=== PATIENT | female | born 1985 | race Caucasian/White ===

== ENCOUNTER 2017-07-16 19:24 | Inpatient (IN) | payer OTHER ==
--- NOTE | 2017-07-16 19:31 | PDOC ---
Rapid Medical Evaluation Time Seen by Provider: 07/16/17 19:27 Medical Evaluation: Allergies Allergy/AdvReac Type Severity Reaction Status Date / Time No Known Allergies Allergy Verified 05/30/14 21:52 I have performed a brief in-person evaluation of this patient. The patient presents with a chief complaint of: epigastric pain x 3 days, sharp , radiating to back. Patient tried tums with little relief. She is crying in triage Pertinent physical exam findings: TTP of epigastric region. Negative castorena's sign. I have ordered the following: labs, UA/hcg The patient will proceed to the ED for further evaluation.
[2017-07-16 19:59] LABS: BASO % 0.5 % (0-2.0); EOS % 2.1 % (0-4.5); HEMOGLOBIN 10.8 GM/dL (10.7-15.3); LYMPH % 24.8 % (8-40); MCH 24.5 pg (25.7-33.7); MCHC 32.7 g/dl (32.0-36.0); MEAN CELL VOLUME 74.9 fl (80-96); NEUT % 67.6 % (42.8-82.8); PLATELET COUNT 357 K/MM3 (134-434); RBC 4.41 M/mm3 (3.60-5.2); RDW 15.1 % (11.6-15.6); WHITE BLOOD COUNT 11.1 K/mm3 (4.0-10.0)
--- NOTE | 2017-07-16 20:12 | PDOC ---
History of Present Illness - General Chief Complaint: Chest Pain Stated Complaint: PAIN Time Seen by Provider: 07/16/17 19:27 - History of Present Illness Initial Comments: 07/16/17 20:22 31 yo F with no significant pmh who p/w abdominal pain. Patient reports acute onset of unremitting, sharp, substernal/epigatsirc abdominal pain with radiation to back between shoulder blades beginning Sunday07-14-17. Pain worse with meals. Patient endorses early satiety, and abdominal discomfort with meals. Pain not improved with OTC tums. Last BM this AM, with absent BPR. + Nausea without vomiting. Denies F/C, CP, palpitations, orthopnea, jaw pain, neck pain, jaw pain, SOB, abdominal pain, diarrhea, constipation, urinary complaints, weakness, lightheadedness, sensory changes PMHx: Laparscopic ovarian cyst removal. Denies h/o endoscopy/colonosocpy. SHx: Denies Etoh use, tobacco use, chronic NSAID use. Past History - Past Medical History Allergies/Adverse Reactions: Allergies Allergy/AdvReac Type Severity Reaction Status Date / Time No Known Allergies Allergy Verified 07/16/17 20:10 Home Medications: Ambulatory Orders Acetaminophen [Tylenol .Regular Strength -] 650 mg PO Q6H tablet 07/20/17 Amox-Tr/K Cl [Augmentin - 875Mg Tablet] 1 tab PO BID #8 tablet 07/20/17 Ibuprofen [Motrin -] 600 mg PO Q6H tablet 07/20/17 Anemia: Yes COPD: No - Immunization History Immunization Up to Date: Yes - Suicide/Smoking/Psychosocial Hx Smoking Status: No Smoking History: Never smoked Number of Cigarettes Smoked Daily: 0 Hx Alcohol Use: No Review of Systems - Review of Systems Comments:: 07/16/17 20:10 GENERAL/CONSTITUTIONAL: No fever or chills. No weakness. HEAD, EYES, EARS, NOSE AND THROAT: No change in vision. No ear pain or discharge. No sore throat. CARDIOVASCULAR: No chest pain or shortness of breath RESPIRATORY: No cough, wheezing, or hemoptysis. GASTROINTESTINAL: + abdominal pain and nausea. No vomiting, diarrhea or constipation. GENITOURINARY: No dysuria, frequency, or change in urination. MUSCULOSKELETAL: No joint or muscle swelling or pain. No neck or back pain. SKIN: No rash NEUROLOGIC: No headache, vertigo, loss of consciousness, or change in strength/ sensation. ENDOCRINE: No increased thirst. No abnormal weight change HEMATOLOGIC/LYMPHATIC: No anemia, easy bleeding, or history of blood clots. ALLERGIC/IMMUNOLOGIC: No hives or skin allergy. *Physical Exam - Vital Signs Last Vital Signs Temp Pulse Resp BP Pulse Ox 98.6 F 85 18 141/74 98 07/16/17 19:29 07/16/17 19:29 07/16/17 19:29 07/16/17 19:29 07/16/17 19:29 - Physical Exam Comments: 07/16/17 20:10 GENERAL: Awake, alert, and fully oriented, in no acute distress HEAD: No signs of trauma, normocephalic, atraumatic EYES: PERRLA, EOMI, sclera anicteric, conjunctiva clear ENT: Hearing grossly normal, nares patent, oropharynx clear without exudates. Moist mucosa NECK: Normal ROM, supple, no lymphadenopathy, JVD, or masses LUNGS: No distress, speaks full sentences, clear to auscultation bilaterally HEART: Regular rate and rhythm, normal S1 and S2, no murmurs, rubs or gallops, peripheral pulses normal and equal bilaterally. ABDOMEN: Soft, + RUQ and epigastric ttp. normoactive bowel sounds. No guarding , no rebound. No masses. Neg CVA or suprpaubic ttp. EXTREMITIES : Normal inspection, Normal range of motion, no edema. No clubbing or cyanosis. SKIN: Warm, Dry, normal turgor, no rashes or lesions noted ED Treatment Course - LABORATORY CBC & Chemistry Diagram: 07/19/17 06:00 07/19/17 06:00 - ADDITIONAL ORDERS Additional order review: 07/16/17 19:50 RBC 4.41 MCV 74.9 L MCHC 32.7 RDW 15.1 MPV 8.0 Neutrophils % 67.6 Lymphocytes % 24.8 D Monocytes % 5.0 Eosinophils % 2.1 Basophils % 0.5 Medical Decision Making - Medical Decision Making 07/16/17 20:36 31 yo F with no significant pmh who p/w epigastria and RUQ abdominal pain. VSS, A&Ox3, with RUQ and epigastria ttp. Possible biliary disease vs. dyspepsia 2/2 reflux. Low suspicion of pancreatitis, colitis, AAA. ACS/[place] r/o. ED Course: CBC, CMP, Lipase, Cardiac Pr EKG RUQ U/S Juanpablo RENETTAMelody 07/16/17 22:51 AST/ALT: 306/365 Alk Phosph:320 WBC: 11.1 RUQ U/S: Multiple small gallstones layering posteriorly without sonographic evidence of acute cholecystitis. Borderline dilatation of the common bile duct. Correlate clinically for further evaluation. Spoke to Dr. De La Fuente, patient admitted to surgery for choledocholithiasis. MRCP in AM. 07/16/17 23:17 Blood cultures, 2 gm Cefoxitin, and NS 150ml/hr ordered. *DC/Admit/Observation/Transfer Diagnosis at time of Disposition: Calculus of gallbladder and bile duct without cholecystitis with obstruction - Discharge Dispostion Disposition: HOME Condition at time of disposition: Good Decision to Admit order: Yes - Prescriptions - Referrals - Patient Instructions - Post Discharge Activity - Attestations Physician Attestion: 07/16/17 20:11 Denies F/C, N/V, CP, SOB, abdominal pain, diarrhea, constipation, urinary complaints, weakness, lightheadedness, sensory changes
[2017-07-16 20:23] LABS: ALBUMIN 3.6 g/dl (3.4-5.0); ANION GAP 7 (8-16); BLOOD UREA NITROGEN 10 mg/dL (7-18); CALCIUM 8.7 mg/dL (8.5-10.1); CHLORIDE 103 mmol/L (98-107); CO2 27 mmol/L (21-32); CREATININE 0.7 mg/dL (0.55-1.02); GLUCOSE,RANDOM 96 mg/dL (74-106); POTASSIUM 3.7 mmol/L (3.5-5.1); SGOT/AST 306 U/L (15-37); SGPT/ALT 365 U/L (12-78); SODIUM 137 mmol/L (136-145)
[2017-07-16 20:25] LABS: ALK PHOS 320 U/L (45-117); BILIRUBIN,TOTAL 0.8 mg/dL (0.2-1.0); TOT PROT 7.9 g/dl (6.4-8.2)
[2017-07-16] MEDS ORDERED: ONDANSETRON 4 MG/2 ML VIAL IVPUSH ONE (20:28)
[2017-07-16] MEDS ORDERED: SODIUM CHLORIDE 0.9% 1000 ML INFUS.BAG IV ONE (20:28)
[2017-07-16] MEDS ORDERED: MAG HYDROX/AL HYDROX/SIMETH 30 ML UNIT-DOSE CUP PO ONE (20:29)
[2017-07-16 20:40] LABS: LIPASE 220 U/L (73-393)
[2017-07-16] MEDS ORDERED: MAG HYDROX/AL HYDROX/SIMETH 30 ML UNIT-DOSE CUP ONE (20:43)
[2017-07-16] MEDS ORDERED: ONDANSETRON 4 MG/2 ML VIAL ONE (20:43)
--- NOTE | 2017-07-16 20:56 | PDOC ---
Attending Attestation - [facility] HPI: 07/16/17 20:57 The patient is a 31 year old female, with no significant past medical history, who presents to the emergency department with sharp radiating epigastric pain for the past 3 days. The patient reports that the pain radiates to her back between her shoulder blades. She also notes that the pain is worse with meals, she reports early satiety in addition to nausea. She reports taking OTC Tums without relief of symptoms. Last bowel movement was this morning, which she states was normal. The patient denies any fever, chills, shortness of breath, chest pain, vomiting, diarrhea, constipation, blood per rectum or dysuria. Denies chronic NSAID use. Allergies: None reported. Past Surgical History: Laparoscopic ovarian cyst removal. Social History: Non-smoker. Denies alcohol or drug use. - Physicial Exam PE: 07/16/17 20:57 Vitals: Triage vital signs reviewed. General Appearance: No acute distress, well nourished, well developed. Head: Atraumatic, normocephalic. Eyes: Pupils equal round reactive, extraocular movements intact. Neck: Supple. No nuchal rigidity. Chest Wall: Nontender. Cardiac: Regular rate and rhythm. No murmurs, no rubs, no gallops. Lungs: Clear to auscultation bilaterally, good air movement bilaterally. Abdomen: RUQ tenderness to palpation. Soft, nondistended, normal bowel sounds. Rectal: Exam deferred. Extremities: Full range of motion to all extremities, no cyanosis, clubbing, or edema. Skin: Warm and dry, no rashes or lesions, no petechiae. Psych: Normal mood, normal affect. - Medical Decision Making 07/16/17 20:58 The patient is a 31 year old female, with no significant past medical history, who presents to the emergency department with sharp radiating epigastric pain for the past 3 days. The patient reports that the pain radiates to her back between her shoulder blades. She also notes that the pain is worse with meals, she reports early satiety in addition to nausea. She reports taking OTC Tums without relief of symptoms. Last bowel movement was this morning, which she states was normal. The patient denies any fever, chills, shortness of breath, chest pain, vomiting, diarrhea, constipation, blood per rectum or dysuria. Denies chronic NSAID use. Allergies: None reported. Past Surgical History: Laparoscopic ovarian cyst removal. Social History: Non-smoker. Denies alcohol or drug use. Documentation prepared by Xenia Klein, acting as medical office rep for Kip Mayfield MD. <Xenia Klein - Last Filed: 07/16/17 20:58> - Resident Resident Name: Trey Garnicason - ED Attending Attestation I have performed the following: I have examined & evaluated the patient, The case was reviewed & discussed with the resident, I agree w/resident's findings & plan, Exceptions are as noted - Critical Care Time Total Critical Care Time: 35 Critical Care Statement: The care of this patient involved high complexity decision making to prevent further life threatening deterioration of the patient 's condition and/or to evaluate & treat vital organ system(s) failure or risk of failure. - Medical Decision Making Right upper quadrant pain with evidence of gallstones on ultrasound. Laboratory analysis notable for elevated LFTs Bilirubin normal. Given slightly elevated WBC antibiotics ordered Surgery, Dr De La Fuente has been consulted. We'll admit to surgical service for further management of choledocholithiasis versus cholecystitis. <Kip Mayfield - Last Filed: 07/17/17 03:24>
[2017-07-16 21:14] LABS: URINE APPEARANCE SLCLOUDY; URINE BILIRUBIN NEGATIVE (<2.0 mg/dL); URINE COLOR DKYELLOW; URINE GLUCOSE (UA) NEGATIVE (NEGATIVE); URINE KETONE NEGATIVE (NEGATIVE); URINE LEUK ESTERASE NEGATIVE (NEGATIVE); URINE NITRITE NEGATIVE (NEGATIVE); URINE PROTEIN NEGATIVE (NEGATIVE); URINE UROBILINOGEN 4.0 E.U/dl mg/dL (0.2-1.0)
[2017-07-16 21:15] LABS: HCG,QUALITATIVE URINE NEGATIVE
[2017-07-16] MEDS ORDERED: morphine CARPU-JECT 4 MG/1 ML DISP.SYRIN IVPUSH ONE (22:44)
[2017-07-16] MEDS ORDERED: MORPHINE SULFATE 10 MG/1 ML *VIAL ONE (22:45)
[2017-07-16] MEDS ORDERED: CEFOXITIN SODIUM 2 GM in DEXTROSE 5%-WATER - 100 ML IVPB ONE (23:08)
--- NOTE | 2017-07-16 23:08 | PN ---
Teaching Attending Note Name of Resident: Merced Osman ATTENDING PHYSICIAN STATEMENT I saw and evaluated the patient. I reviewed the resident's note and discussed the case with the resident. I agree with the resident's findings and plan as documented. SUBJECTIVE: 31 F with no pmhx. who presents with abdominal pain,with radiation to her shoulder blades. Stated pain began on Sunday and radiates to her shoulder blades. States her pain is worse with meals, States she has associated nausea, but no vomiting. Pshx: Ovarian Cyst Removal OBJECTIVE: Physical: VS: Vital Signs Period Temp Pulse Resp BP Sys/Avalos Pulse Ox Last 24 Hr 98.6 F 85 18 141/74 98 GEN: HEENT: CARD: RESP: ABD: EXT: CBCD WBC 11.1 K/mm3 (4.0-10.0) H 07/16/17 19:50 RBC 4.41 M/mm3 (3.60-5.2) 07/16/17 19:50 Hgb 10.8 GM/dL (10.7-15.3) 07/16/17 19:50 Hct 33.0 % (32.4-45.2) 07/16/17 19:50 MCV 74.9 fl (80-96) L 07/16/17 19:50 MCHC 32.7 g/dl (32.0-36.0) 07/16/17 19:50 RDW 15.1 % (11.6-15.6) 07/16/17 19:50 Plt Count 357 K/MM3 (134-434) 07/16/17 19:50 MPV 8.0 fl (7.5-11.1) 07/16/17 19:50 CMP Sodium 137 mmol/L (136-145) 07/16/17 19:50 Potassium 3.7 mmol/L (3.5-5.1) 07/16/17 19:50 Chloride 103 mmol/L (98-107) 07/16/17 19:50 Carbon Dioxide 27 mmol/L (21-32) 07/16/17 19:50 Anion Gap 7 (8-16) L 07/16/17 19:50 BUN 10 mg/dL (7-18) 07/16/17 19:50 Creatinine 0.7 mg/dL (0.55-1.02) 07/16/17 19:50 Creat Clearance w eGFR > 60 (>60) 07/16/17 19:50 Random Glucose 96 mg/dL (74-106) 07/16/17 19:50 Calcium 8.7 mg/dL (8.5-10.1) 07/16/17 19:50 Total Bilirubin 0.8 mg/dL (0.2-1.0) D 07/16/17 19:50 AST 306 U/L (15-37) H 07/16/17 19:50 ALT 365 U/L (12-78) H 07/16/17 19:50 Alkaline Phosphatase 320 U/L (45-117) H 07/16/17 19:50 Total Protein 7.9 g/dl (6.4-8.2) 07/16/17 19:50 Albumin 3.6 g/dl (3.4-5.0) 07/16/17 19:50 CARDIAC ENZYMES Creatine Kinase 102 IU/L (26-192) 07/16/17 19:52 Troponin I < 0.02 ng/ml (0.00-0.05) 07/16/17 19:52 ABD: US: Multiple Small Gallstones, without sonographic evidence of acute choleycystitis ASSESSMENT AND PLAN: 31 F with no Pmhx. who presents with abdominal pain, being admitted for choledocholithiasis 1.) Choledocholithiasis - NPO - ERCP in AM - GI/Sx Consult - Type & Screen - Coags - Abx - IVF 2.) Dvt Ppx - Scds Place in [facility]-Sx
[2017-07-16] MEDS ORDERED: SODIUM CHLORIDE 1,000 ML IV SCH (23:15)
[2017-07-16] MEDS ORDERED: ACETAMINOPHEN 325 MG TABLET (FP) PO PRN (23:16)
[2017-07-16] MEDS ORDERED: morphine SULFATE 4 MG/ML VIAL IVPUSH PRN (23:16)
[2017-07-17] MEDS ORDERED: D5-1/2NS+20 MEQ KCL - 20 MEQ/1,000 ML INFUS.BAG IV SCH (01:00)
[2017-07-17 01:54] LABS: INR 1.1 (0.82-1.09); PROTHROMBIN TIME (PATIENT) 12.4 SEC (9.7-13.0)
[2017-07-17] MEDS ORDERED: PT OWN MED DRAWER 7, Y5N ONE ×2 (05:49→08:26)
[2017-07-17 07:30] LABS: BASO % 0.5 % (0-2.0); HEMATOCRIT 30.2 % (32.4-45.2); HEMOGLOBIN 10.2 GM/dL (10.7-15.3); LYMPH % 36.2 % (8-40); MCH 25.5 pg (25.7-33.7); MCHC 33.6 g/dl (32.0-36.0); MEAN CELL VOLUME 75.9 fl (80-96); MEAN PLT VOLUME 8.2 fl (7.5-11.1); MONO % 6.9 % (3.8-10.2); NEUT % 54.4 % (42.8-82.8); PLATELET COUNT 299 K/MM3 (134-434); RBC 3.98 M/mm3 (3.60-5.2); RDW 15.3 % (11.6-15.6)
[2017-07-17 07:58] LABS: CHLORIDE 108 mmol/L (98-107); POTASSIUM 4.1 mmol/L (3.5-5.1); SODIUM 140 mmol/L (136-145)
[2017-07-17] MEDS ORDERED: CEFOXITIN SODIUM 2 GM in DEXTROSE 5%-WATER - 100 ML IVPB ONE (08:00)
[2017-07-17 08:14] LABS: ALBUMIN 2.9 g/dl (3.4-5.0); ALK PHOS 316 U/L (45-117); ANION GAP 6 (8-16); BILIRUBIN,TOTAL 1.7 mg/dL (0.2-1.0); BLOOD UREA NITROGEN 7 mg/dL (7-18); CALCIUM 7.9 mg/dL (8.5-10.1); CO2 26 mmol/L (21-32); CREATININE 0.6 mg/dL (0.55-1.02); GLUCOSE,RANDOM 83 mg/dL (74-106); LIPASE 190 U/L (73-393); SGOT/AST 289 U/L (15-37); SGPT/ALT 350 U/L (12-78); TOT PROT 6.3 g/dl (6.4-8.2)
--- NOTE | 2017-07-17 10:01 | EKG ---
Test Reason : Blood Pressure : / mmHG Vent. Rate : 072 BPM Atrial Rate : 072 BPM P-R Int : 164 ms QRS Dur : 086 ms QT Int : 416 ms P-R-T Axes : 052 064 075 degrees QTc Int : 455 ms NORMAL SINUS RHYTHM NORMAL ECG NO PREVIOUS ECGS AVAILABLE Confirmed by MD Debora, [place] ([id number]) on 07/17/2017 10:00:43 AM Referred By: Confirmed By:[place] Cazares MD
--- NOTE | 2017-07-17 11:40 | HP ---
Admitting History and Physical - Admission Chief Complaint: epigastric pain through to back History of Present Illness: 31yo morbidly obese F with h/o laparoscopic ovarian cyst removal for size 2010, GERD self-treated with TUMS and avoidance of acidic foods, presented to ER yesterday with epigastric pain radiating to back associated with nausea but no vomiting, no F/C, no change in bowel habits or stool quality, + feeling of early satiety. She never had this pain before, and it did not respond to TUMS. Started Sunday after dinner of tacos and subsided some to discomfort but not pain on Sunday. She ate very little on Sunday but was still drinking fluids, because she had nausea. Sunday morning, she had fatty breakfast of salami, cheese and plantains with butter and initially she felt just very full. Returning from work, the pain came back while driving and was not better after a smoothie made with water at home. It got worse, and she came to ER. Last BM was normal yesterday. In ER, she was afebrile, with wbc 11 and elevated LFTs but normal lipase and bili. US showed multiple small stones in gallbladder without signs of cholecystitis. Pain ultimately responded to morphine, and she has been able to sleep. She got IVF and was started on antibiotics in ER. She was admitted to surgery overnight, and continued on IVF and NPO status. This morning, she reports her pain is not present and was woken from sleep for examination. She is about to go for MRCP. History Source: Patient Limitations to Obtaining History: No Limitations - Past Medical History Gastrointestinal: Yes: GERD Reproductive: Yes: Other (ovarian cyst) ...LMP: 07/10/17 ...LMP Comment: spots intermittently, has IUD in ...: No - Past Surgical History Additional Past Surgical History: laparoscopic ovarian cyst removal for large size 2010; Mirena IUD in place - Smoking History Smoking history: Never smoked Have you smoked in the past 12 months: No Aproximately how many cigarettes per day: 0 - Alcohol/Substance Use Hx Alcohol Use: No History of Substance Use: reports: None - Social History ADL: Independent 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 denies: Recent Change in Vision HENT: denies: Difficult Swallowing, Nasal Congestion, Throat Pain Neck: denies: Swollen Glands, Tenderness Cardiovascular: denies: Chest Pain, Palpitations Respiratory: denies: Cough, SOB Gastrointestinal: reports: Abdominal Pain (with hpi), Nausea (with hpi), Other ( feeling of satiety last few days). denies: Constipation, Diarrhea, Vomiting Genitourinary: denies: Burning, Dysuria Musculoskeletal: denies: Back Pain, Joint Pain, Muscle Pain Integumentary: denies: Change in Color, Rash Neurological: denies: Dizziness, Headache Psychiatric: denies: Anxiety, Depression Physical Examination Vital Signs: Vital Signs Temperature 97.8 F 07/17/17 05:46 Pulse Rate 69 07/17/17 05:46 Respiratory Rate 18 07/17/17 05:46 Blood Pressure 97/55 07/17/17 05:46 O2 Sat by Pulse Oximetry (%) 96 07/17/17 05:39 Constitutional: Yes: No Distress, Calm, Obese Eyes: Yes: Conjunctiva Clear, EOM Intact. No: Sclera Icterus HENT: Yes: Atraumatic, Normocephalic Neck: Yes: Supple, Trachea Midline Cardiovascular: Yes: Regular Rate and Rhythm. No: Murmur Respiratory: Yes: Regular, CTA Bilaterally Gastrointestinal: Yes: Normal Bowel Sounds, Soft, Abdomen, Obese, Other (well- healed infraumbilical and other laparoscopic scars). No: Distention, Tenderness ...Rectal Exam: Yes: Deferred Renal/: No: CVA Tenderness - Left, CVA Tenderness - Right Musculoskeletal: No: Back Pain (no direct tenderness), Joint Stiffness, Joint Swelling Extremities: No: Cool, Cyanosis Edema: No Peripheral Pulses WNL: Yes Integumentary: No: Jaundice, Rash Neurological: Yes: Alert, Oriented. No: Unsteady Gait Psychiatric: Yes: Alert, Oriented Labs: CBC, BMP 07/17/17 06:00 07/17/17 06:00 CMP Sodium 140 mmol/L (136-145) 07/17/17 06:00 Potassium 4.1 mmol/L (3.5-5.1) 07/17/17 06:00 Chloride 108 mmol/L (98-107) H 07/17/17 06:00 Carbon Dioxide 26 mmol/L (21-32) 07/17/17 06:00 Anion Gap 6 (8-16) L 07/17/17 06:00 BUN 7 mg/dL (7-18) 07/17/17 06:00 Creatinine 0.6 mg/dL (0.55-1.02) 07/17/17 06:00 Creat Clearance w eGFR > 60 (>60) 07/17/17 06:00 Random Glucose 83 mg/dL (74-106) 07/17/17 06:00 Calcium 7.9 mg/dL (8.5-10.1) L 07/17/17 06:00 Total Bilirubin 1.7 mg/dL (0.2-1.0) H D 07/17/17 06:00 AST 289 U/L (15-37) H 07/17/17 06:00 ALT 350 U/L (12-78) H 07/17/17 06:00 Alkaline Phosphatase 316 U/L (45-117) H 07/17/17 06:00 Creatine Kinase 102 IU/L (26-192) 07/16/17 19:52 Troponin I < 0.02 ng/ml (0.00-0.05) 07/16/17 19:52 Total Protein 6.3 g/dl (6.4-8.2) L 07/17/17 06:00 Albumin 2.9 g/dl (3.4-5.0) L 07/17/17 06:00 Lipase 190 U/L (73-393) 07/17/17 06:00 bili up from 0.8, LFTs sideways, lipase still normal wbc down from 11 INR, PTT INR 1.10 (0.82-1.09) 07/17/17 01:20 Urine Test Results Urine Color Dkyellow 07/16/17 21:00 Urine Appearance Slcloudy 07/16/17 21:00 Urine pH 6.0 (5.0-8.0) 07/16/17 21:00 Ur Specific [place] 1.020 (1.001-1.035) 07/16/17 21:00 Urine Protein Negative (NEGATIVE) 07/16/17 21:00 Urine Glucose (UA) Negative (NEGATIVE) 07/16/17 21:00 Urine Ketones Negative (NEGATIVE) 07/16/17 21:00 Urine Blood Negative (NEGATIVE) 07/16/17 21:00 Urine Nitrite Negative (NEGATIVE) 07/16/17 21:00 Urine Bilirubin Negative (<2.0 mg/dL) 07/16/17 21:00 Ur Leukocyte Esterase Negative (NEGATIVE) 07/16/17 21:00 Imaging - Results Ultrasound: Report Reviewed, Image Reviewed (images reviewed - numerous small stones in gallbladder with normal wall thickness, no pericholecystic fluid, cbd dilated at almost 6mm, no intrahepatic dilation) MRI: Pending Problem List - Problems (1) Calculus of gallbladder and bile duct without cholecystitis with obstruction Assessment/Plan: cholelithiasis with presumed choledocholithiasis without cholecystitis admit to surgery NPO/IVF pain meds prn, currently without pain bili doubled overnight, LFTs still elevated MRCP with possible ERCP pending results - GI consult cover with antibiotics, ID consulted GI/DVT prophylaxis anticipate cholecystectomy prior to discharge Code(s): K80.71 - CALCULUS OF GB AND BILE DUCT W/O CHOLECYST W OBSTRUCTION (2) Morbid obesity with BMI of 40.0-44.9, adult Code(s): E66.01 - MORBID (SEVERE) OBESITY DUE TO EXCESS CALORIES; Z68.41 - BODY MASS INDEX (BMI) 40.0-44.9, ADULT (3) Epigastric pain Code(s): R10.13 - EPIGASTRIC PAIN
--- NOTE | 2017-07-17 13:33 | CON.ID ---
Consult Consult Specialty:: infectious diseases Referred by:: Reason for Consultation:: choleycystitis - History of Present Illness Chief Complaint: abd pain History of Present Illness: 31yo morbidly obese F with h/o laparoscopic ovarian cyst removal 2010, GERD self-treated with TUMS and avoidance of acidic foods, admitted with epigastric pain radiating to back associated with nausea but no vomiting, Pain was not relieved by tums. patient continued to have pain and the pain became less intense on sunday. patient pain came back and was severe which forced her to come to the hospital. patient was admitted to the hospital and worked up and patient was found to have choleycystitis with filling defect in the cbd currently the patient feels well and looks comfortable plan is for the patient to undergo ercp and then choley - History Source History Provided By: Patient Limitations to Obtaining History: No Limitations - Past Medical History Gastrointestinal: Yes: GERD ...LMP: 07/10/17 ...LMP Comment: spots intermittently, has IUD in ...: No - Alcohol/Substance Use Hx Alcohol Use: No History of Substance Use: reports: None - Smoking History Smoking history: Never smoked Have you smoked in the past 12 months: No Aproximately how many cigarettes per day: 0 - Social History ADL: Independent 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 [employer] Home Medications - Allergies Allergies/Adverse Reactions: Allergies Allergy/AdvReac Type Severity Reaction Status Date / Time No Known Allergies Allergy Verified 07/16/17 20:10 - Home Medications Home Medications: Ambulatory Orders NK [No Known Home Medication] 07/16/17 Review of Systems - Review of Systems Constitutional: reports: No Symptoms Eyes: reports: No Symptoms HENT: reports: No Symptoms Neck: reports: No Symptoms Cardiovascular: reports: No Symptoms Respiratory: reports: No Symptoms Gastrointestinal: reports: Abdominal Pain Genitourinary: reports: No Symptoms Musculoskeletal: reports: No Symptoms Integumentary: reports: No Symptoms Neurological: reports: No Symptoms Endocrine: reports: No Symptoms Hematology/Lymphatic: reports: No Symptoms Psychiatric: reports: No Symptoms Physical Exam Vital Signs: Vital Signs Temperature 97.8 F 07/17/17 05:46 Pulse Rate 69 07/17/17 05:46 Respiratory Rate 18 07/17/17 05:46 Blood Pressure 97/55 07/17/17 05:46 O2 Sat by Pulse Oximetry (%) 96 07/17/17 05:39 Constitutional: Yes: Calm, Mild Distress, Obese Eyes: Yes: Conjunctiva Clear Neck: Yes: Supple, Trachea Midline Cardiovascular: Yes: Regular Rate and Rhythm Respiratory: Yes: Regular, CTA Bilaterally Gastrointestinal: Yes: Normal Bowel Sounds, Soft, Tenderness (ruq) Musculoskeletal: Yes: WNL Extremities: Yes: WNL Neurological: Yes: Alert, Oriented Psychiatric: Yes: Alert, Oriented Labs: CBC, BMP 07/17/17 06:00 07/17/17 06:00 Imaging - Results Ultrasound: Report Reviewed, Image Reviewed MRI: Report Reviewed, Image Reviewed Assessment/Plan Problem List - Problems (1) Calculus of gallbladder and bile duct without cholecystitis with obstruction Code(s): K80.71 - CALCULUS OF GB AND BILE DUCT W/O CHOLECYST W OBSTRUCTION (2) Morbid obesity with BMI of 40.0-44.9, adult Code(s): E66.01 - MORBID (SEVERE) OBESITY DUE TO EXCESS CALORIES; Z68.41 - BODY MASS INDEX (BMI) 40.0-44.9, ADULT (3) Epigastric pain Code(s): R10.13 - EPIGASTRIC PAIN patients wbc now normal plan will continue abx but will start patient on zosyn patient looks comfortable and stable await for ercp rest as per the team
[2017-07-17] MEDS ORDERED: PROPOFOL 20 ML ONE ×2 (15:17)
[2017-07-17] MEDS ORDERED: ROCURONIUM BROMIDE 50 MG/5 ML VIAL ONE ×2 (15:17→15:50)
[2017-07-17] MEDS ORDERED: ONDANSETRON 4 MG/2 ML VIAL ONE (15:19)
[2017-07-17] MEDS ORDERED: NEOSTIGMINE METHYLSULFATE 0.5 MG/ML - 10 ML MDV ONE (15:19)
[2017-07-17] MEDS ORDERED: GLYCOPYRROLATE 0.2 MG/1 ML VIAL ONE ×3 (15:19)
[2017-07-17] MEDS ORDERED: METOCLOPRAMIDE HCL INJECTION 10 MG/2 ML VIAL ONE (15:20)
--- NOTE | 2017-07-17 15:23 | PN ---
Progress Note (short form) - Note Progress Note: GI Preprocedure NOte. The full consult will follow. The need for ERCP and it's potential risks that include hemorrhage, preforation and ERCP induced pancreatitis that could lead to multiorgan failure were discussed in detail with Ms. Cardoso after which she granted an informed consent. The consult will be written after the procedure which needs to be done promptly to prevent cholangitis.
[2017-07-17] MEDS ORDERED: INDOMETHACIN 50 MG RECTAL SUPPOSITORY PR ONE (15:45)
[2017-07-17] MEDS ORDERED: GLUCAGON 1 MG KIT ONE (16:44)
--- NOTE | 2017-07-17 17:23 | PN ---
Progress Note (short form) - Note Progress Note: GI Procedure NOte: Please see scanned ERCP report. Two common bile duct stones were extracted after sphincterotomy. Dr De La Fuente informed. Need to observe for pancreatitis. Avoid all anticoagulants. Continue antibiotics. If no pancreatitis , can proceed with lap choly.
--- NOTE | 2017-07-17 17:33 | CON.GI ---
Consult Consult Specialty:: Gastroenterology Referred by:: Dr Peter De La Fuente Reason for Consultation:: Abdominal pain and abnormal LFTs - History of Present Illness Chief Complaint: Abdominal pain History of Present Illness: 31F presented with severe epigastric pain radiating into her back that began after breakfast yesterday. She has had the pain before but it was not as severe. She also had nausea but no vomiting. In the ER she was noted to have elevated transaminases and her bilrirubin valarie overnight. Today I was contacted by Dr. De La Fuente about a possible ERCP. She later informed me that MRCP revealed choledocholithiasis. I arranged an urgent ERCP after obtaining informed consent and performing a full consultation. I proceeded with ERCP given the risk of cholangitis. This yielded 2 CBD stones. I have informed the patient of this and also informed Dr. De La Fuente. - History Source History Provided By: Patient Limitations to Obtaining History: No Limitations - Past Medical History Gastrointestinal: Yes: GERD ...LMP: 07/10/17 ...LMP Comment: spots intermittently, has IUD in ...: No Endocrine: Yes: Other (Morbid obesity) - Past Surgical History Additional Surgical History: Laparoscopic ovarian cystectomy - Alcohol/Substance Use Hx Alcohol Use: No History of Substance Use: reports: None - Smoking History Smoking history: Never smoked Have you smoked in the past 12 months: No Aproximately how many cigarettes per day: 0 - Social History Usual Living Arrangement: With Spouse ADL: Independent 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 [employer] Place of : [facility] History of Recent Travel: No Home Medications - Allergies Allergies/Adverse Reactions: Allergies Allergy/AdvReac Type Severity Reaction Status Date / Time No Known Allergies Allergy Verified 07/16/17 20:10 - Home Medications Home Medications: Ambulatory Orders NK [No Known Home Medication] 07/16/17 Family Disease History - Family Disease History Family Disease History: CA: Father (prostate cancer), Other: Mother ( hypertension) Review of Systems - Review of Systems Constitutional: reports: No Symptoms Eyes: reports: No Symptoms HENT: reports: No Symptoms Neck: reports: No Symptoms Cardiovascular: reports: No Symptoms Respiratory: reports: No Symptoms Gastrointestinal: reports: Abdominal Pain, Indigestion, Nausea, Other (heartburn ) Genitourinary: reports: No Symptoms Musculoskeletal: reports: No Symptoms Neurological: reports: No Symptoms Endocrine: reports: No Symptoms Physical Exam-GI Vital Signs: Vital Signs Temperature 97.6 F 07/17/17 17:12 Pulse Rate 64 07/17/17 17:12 Respiratory Rate 18 07/17/17 17:12 Blood Pressure 122/63 07/17/17 17:12 O2 Sat by Pulse Oximetry (%) 100 07/17/17 17:12 CBC,CMP WBC 8.0 K/mm3 (4.0-10.0) 07/17/17 06:00 RBC 3.98 M/mm3 (3.60-5.2) 07/17/17 06:00 Hgb 10.2 GM/dL (10.7-15.3) L 07/17/17 06:00 Hct 30.2 % (32.4-45.2) L 07/17/17 06:00 MCV 75.9 fl (80-96) L 07/17/17 06:00 MCH 25.5 pg (25.7-33.7) L 07/17/17 06:00 MCHC 33.6 g/dl (32.0-36.0) 07/17/17 06:00 RDW 15.3 % (11.6-15.6) 07/17/17 06:00 Plt Count 299 K/MM3 (134-434) 07/17/17 06:00 MPV 8.2 fl (7.5-11.1) 07/17/17 06:00 Neutrophils % 54.4 % (42.8-82.8) 07/17/17 06:00 Lymphocytes % 36.2 % (8-40) D 07/17/17 06:00 Monocytes % 6.9 % (3.8-10.2) 07/17/17 06:00 Eosinophils % 2.0 % (0-4.5) 07/17/17 06:00 Basophils % 0.5 % (0-2.0) 07/17/17 06:00 Sodium 140 mmol/L (136-145) 07/17/17 06:00 Potassium 4.1 mmol/L (3.5-5.1) 07/17/17 06:00 Chloride 108 mmol/L (98-107) H 07/17/17 06:00 Carbon Dioxide 26 mmol/L (21-32) 07/17/17 06:00 Anion Gap 6 (8-16) L 07/17/17 06:00 BUN 7 mg/dL (7-18) 07/17/17 06:00 Creatinine 0.6 mg/dL (0.55-1.02) 07/17/17 06:00 Creat Clearance w eGFR > 60 (>60) 07/17/17 06:00 Random Glucose 83 mg/dL (74-106) 07/17/17 06:00 Calcium 7.9 mg/dL (8.5-10.1) L 07/17/17 06:00 Total Bilirubin 1.7 mg/dL (0.2-1.0) H D 07/17/17 06:00 AST 289 U/L (15-37) H 07/17/17 06:00 ALT 350 U/L (12-78) H 07/17/17 06:00 Alkaline Phosphatase 316 U/L (45-117) H 07/17/17 06:00 Creatine Kinase 102 IU/L (26-192) 07/16/17 19:52 Troponin I < 0.02 ng/ml (0.00-0.05) 07/16/17 19:52 Total Protein 6.3 g/dl (6.4-8.2) L 07/17/17 06:00 Albumin 2.9 g/dl (3.4-5.0) L 07/17/17 06:00 Lipase 190 U/L (73-393) 07/17/17 06:00 Current Medications Generic Name Dose Route Start Last Admin Trade Name Freq PRN Reason Stop Dose Admin Acetaminophen 650 mg 07/16/17 23:16 Tylenol - PO Q6H PRN PAIN LEVEL 1-5 Potassium Chloride/Dextrose/Sod Cl 20 meq in 1,000 mls @ 125 mls/hr 07/17/17 01:00 07/17/17 08:20 D5-1/2ns+20 Meq Kcl - IV 125 mls/hr ASDIR VI Administration Piperacillin Sod/Tazobactam 50 mls @ 100 mls/hr 07/17/17 18:00 Sod 3.375 gm/ Dextrose IVPB Q8H-IV VI Protocol Morphine Sulfate 2 mg 07/16/17 23:16 Morphine Sulfate IVPUSH Q4H PRN PAIN LEVEL 6-10 Constitutional: Yes: Well Nourished Eyes: Yes: Conjunctiva Clear HENT: Yes: Normocephalic Neck: Yes: Supple Cardiovascular: Yes: Regular Rate and Rhythm Respiratory: Yes: CTA Bilaterally Gastrointestinal Inspection: Yes: Scars (healed laparoscopic incisions) ...Auscultate: Yes: Normoactive Bowel Sounds ...Palpate: Yes: Soft, Other (nontender) ...Rectal Exam: Yes: Deferred Edema: No Neurological: Yes: Alert, Oriented Labs: CBC, BMP 07/17/17 06:00 07/17/17 06:00 INR, PTT INR 1.10 (0.82-1.09) 07/17/17 01:20 Imaging - Results MRI: Report Reviewed (Govind White Name: BRANDO KAUR DEPARTMENT OF RADIOLOGY Phys: Juanpablo Garnica RESIDENT : 1985 Age: 31 Sex: F [facility] Acct: [id number] Loc: [address] Exam Date: 07/17/17 Status: [place] [address] Unit Number: [id number] EXAM#: TYPE/EXAM: RESULT: [id number] MRI/ABDOMEN MRI W/O CONTRAST /MRCP MRI OF THE ABDOMEN WITHOUT IV GADOLINIUM WITH MRCP HISTORY: 31-year-old female with right upper quadrant pain and persistent elevated LFTs TECHNIQUE: Multiplanar multisequential MRI of the abdomen without the intravenous administration of contrast were performed on a high field 1.5 Cathie GE magnet. Axial and coronal T2 fat-sat, axial T1 (in and out of phase), axial T2 FIESTA, axial T1 fat sat - LAVA without contrast in addition to coronal LAVA and axial diffusion weighted images were performed. Axial and coronal thin and thick slab 3 D MRCP was performed. No comparison MRI is available. Correlation is made with ultrasound of the abdomen dated July 16, 2017. FINDINGS: There is mild bilateral posterior dependent lung atelectasis. The visualized inferior mediastinum is grossly unremarkable. The liver is normal in size with no evidence of abnormal loss of signal on out of phase imaging to suggest fatty infiltration. There is no evidence of focal hepatic signal abnormality. The spleen is normal in size with no evidence of focal abnormal signal. The pancreas is homogeneous in signal with no evidence of focal abnormal signal. The pancreatic duct is nondilated. The gallbladder is partially distended containing multiple gallstones demonstrating mild wall thickening with surrounding edema. There is a 3 to 4 mm filling defect in the distal third of the CBD but with normal caliber proximal CBD and no intrahepatic biliary ductal dilatation. The adrenal glands are unremarkable. There is no focal renal signal abnormality. There is no hydronephrosis. There is no evidence of abdominal lymphadenopathy or abdominal ascites. There is no evidence of abnormally dilated bowel loops. The visualized osseous structures are grossly unremarkable. IMPRESSION: Cholelithiasis with MRI evidence of cholecystitis. Choledocholithiasis but with no significant biliary ductal dilatation. Bilateral posterior dependent lung atelectasis. Case discussed with Dr. De La Fuente at the time of dictation Reported By: Bryon Herrera MD 07/17/17 1315 Technologist: Mckay Velázquez Transcribed Date/Time: 07/17/17 1315 Hot Mill Operator: Bryon Herrera Printed Date/Time: By: Signed by: Bryon Herrera Signed on: 17-Jul-2017 13:16) Problem List - Problems (1) Calculus of gallbladder and bile duct without cholecystitis with obstruction Assessment/Plan: The patient's symptoms and LFT abnormalities have been explained and hopefully remedied by removal of her cBD stones. I have advised cholecystectomy to prevent recurrences. Need to observe for pancreatitis overnight. Will order brisk fluids for this. I discussed the case with Dr De La Fuente Code(s): K80.71 - CALCULUS OF GB AND BILE DUCT W/O CHOLECYST W OBSTRUCTION (2) Abnormal LFTs (liver function tests) Code(s): R94.5 - ABNORMAL RESULTS OF LIVER FUNCTION STUDIES (3) Epigastric pain Code(s): R10.13 - EPIGASTRIC PAIN (4) Morbid obesity with BMI of 40.0-44.9, adult Code(s): E66.01 - MORBID (SEVERE) OBESITY DUE TO EXCESS CALORIES; Z68.41 - BODY MASS INDEX (BMI) 40.0-44.9, ADULT
[2017-07-17] MEDS ORDERED: LACTATED RINGERS SOLUTION 1,000 ML/1,000 ML INFUS.BAG IV SCH (18:15)
[2017-07-17] MEDS ORDERED: PIPERACILLIN/TAZOBACTAM 3.375 GM VIAL IVPB ONE (18:34)
[2017-07-17] MEDS ORDERED: DEXTROSE 5%-WATER - 50 ML IVPB ONE (18:34)
[2017-07-17] MEDS: PIPERACILLIN/TAZOB 3.375 GM 3.375 GM in DEXTROSE 5%-WATER - 50 ML IVPB SCH (18:50)
[2017-07-17] MEDS ORDERED: ONDANSETRON 4 MG/2 ML VIAL IVPUSH PRN (19:32)
[2017-07-17] MEDS: FAMOTIDINE 20 MG/50 ML IVPB 20 MG/50 ML MG IVPB SCH (23:25)
[2017-07-18] MEDS ORDERED: LACTATED RINGERS SOLUTION 1,000 ML/1,000 ML INFUS.BAG IV SCH ×2 (00:15→06:15)
[2017-07-18] MEDS ORDERED: DEXTROSE 5%-WATER - 50 ML IVPB ONE ×3 (02:59→17:15)
[2017-07-18] MEDS ORDERED: PIPERACILLIN/TAZOBACTAM 3.375 GM VIAL IVPB ONE ×3 (02:59→17:15)
[2017-07-18] MEDS: PIPERACILLIN/TAZOB 3.375 GM 3.375 GM in DEXTROSE 5%-WATER - 50 ML IVPB SCH ×3 (03:02→17:19)
[2017-07-18 08:54] LABS: BASO % 0.3 % (0-2.0); EOS % 1.3 % (0-4.5); HEMATOCRIT 32.2 % (32.4-45.2); HEMOGLOBIN 10.5 GM/dL (10.7-15.3); LYMPH % 22.9 % (8-40); MCH 24.6 pg (25.7-33.7); MCHC 32.8 g/dl (32.0-36.0); MEAN PLT VOLUME 8.5 fl (7.5-11.1); MONO % 4.3 % (3.8-10.2); NEUT % 71.2 % (42.8-82.8); PLATELET COUNT 333 K/MM3 (134-434); RBC 4.29 M/mm3 (3.60-5.2); RDW 15.2 % (11.6-15.6); WHITE BLOOD COUNT 11.1 K/mm3 (4.0-10.0)
[2017-07-18] MEDS: FAMOTIDINE 20 MG/50 ML IVPB 20 MG/50 ML MG IVPB SCH ×2 (10:25→21:04)
--- NOTE | 2017-07-18 11:07 | PN ---
Progress Note, Physician History of Present Illness: Pt with choledocholithiasis s/p ERCP yesterday with extraction of 2 stones and sphincterotomy. Had sore throat after, and some nausea, but little pain. Throat feeling better this am. Has been up OOB. No fevers. - Current Medication List Current Medications: Active Medications Acetaminophen (Tylenol -) 650 mg PO Q6H PRN PRN Reason: PAIN LEVEL 1-5 Piperacillin Sod/Tazobactam (Sod 3.375 gm/ Dextrose) 50 mls @ 100 mls/hr IVPB Q8H-IV VI PRN Reason: Protocol Last Admin: 07/18/17 10:25 Dose: 100 mls/hr Lactated Ringer's (Lactated Ringers Solution) 1,000 ml in 1,000 mls @ 175 mls/ hr IV ASDIR VI Stop: 07/18/17 12:15 Last Admin: 07/18/17 06:03 Dose: 175 mls/hr Lactated Ringer's (Lactated Ringers Solution) 1,000 ml in 1,000 mls @ 150 mls/ hr IV ASDIR VI Famotidine/Sodium Chloride (Pepcid 20 Mg Premixed Ivpb -) 20 mg in 50 mls @ 100 mls/hr IVPB BID VI Last Admin: 07/18/17 10:25 Dose: 100 mls/hr Morphine Sulfate (Morphine Sulfate) 2 mg IVPUSH Q4H PRN PRN Reason: PAIN LEVEL 6-10 Ondansetron HCl (Zofran Injection) 4 mg IVPUSH Q4H PRN PRN Reason: NAUSEA AND/OR VOMITING - Objective Vital Signs: Vital Signs Temperature 98.1 F 07/18/17 09:45 Pulse Rate 76 07/18/17 09:45 Respiratory Rate 17 07/18/17 09:45 Blood Pressure 143/83 07/18/17 09:45 Constitutional: Yes: No Distress, Calm, Obese Eyes: Yes: Conjunctiva Clear, EOM Intact. No: Sclera Icterus HENT: Yes: Atraumatic, Normocephalic Cardiovascular: Yes: Regular Rate and Rhythm Respiratory: Yes: Regular, CTA Bilaterally Gastrointestinal: Yes: Soft, Abdomen, Obese, Tenderness (RUQ mild), Tenderness, Epigastrium (no R/G). No: Tenderness, Rebound Extremities: No: Cool, Cyanosis Integumentary: No: Jaundice, Rash Neurological: Yes: Alert, Oriented Labs: CBC, BMP 07/18/17 06:00 CMP Sodium 140 mmol/L (136-145) 07/18/17 06:00 Potassium 4.1 mmol/L (3.5-5.1) 07/18/17 06:00 Chloride 107 mmol/L (98-107) 07/18/17 06:00 Carbon Dioxide 27 mmol/L (21-32) 07/18/17 06:00 Anion Gap 6 (8-16) L 07/18/17 06:00 BUN 6 mg/dL (7-18) L 07/18/17 06:00 Creatinine 0.6 mg/dL (0.55-1.02) 07/18/17 06:00 Creat Clearance w eGFR > 60 (>60) 07/18/17 06:00 Random Glucose 70 mg/dL (74-106) L 07/18/17 06:00 Calcium 8.2 mg/dL (8.5-10.1) L 07/18/17 06:00 Total Bilirubin 0.7 mg/dL (0.2-1.0) D 07/18/17 06:00 AST 144 U/L (15-37) H 07/18/17 06:00 ALT 288 U/L (12-78) H 07/18/17 06:00 Alkaline Phosphatase 278 U/L (45-117) H 07/18/17 06:00 C-Reactive Protein 3.0 MG/DL (0.00-0.3) H 07/18/17 06:00 Total Protein 6.3 g/dl (6.4-8.2) L 07/18/17 06:00 Albumin 2.8 g/dl (3.4-5.0) L 07/18/17 06:00 Total Amylase 333 U/L (25-115) H 07/18/17 06:00 Lipase 2859 U/L (73-393) H 07/18/17 06:00 LFTs coming down but am/lip elevated after ERCP wbc with small bump Problem List - Problems (1) Calculus of gallbladder and bile duct without cholecystitis with obstruction Assessment/Plan: choledocholithiasis s/p ERCP with 2 stones out and sphincterotomy MRCP with evidence of mild cholecystitis as well on antibiotics per ID now with some pancreatitis, though LFTs trending down continue NPO/generous IVF trend labs zofran for nausea prn pain meds prn Discussed with patient risks, benefits and alternatives of laparoscopic possible open cholcystectomy, including but not limited to bleeding, infection, injury to adjacent structures, bile leak or ductal injury, intraabdominal abscess, hernia, need for further procedures; alternatives include antibiotics with delayed or no surgery - risks of this include recurrence of choledocholithiasis, pancreatitis, cholecystitis, cholangitis and potential for sepsis or . Patient desires to proceed with operation - will take to OR for above once pancreatitis is resolving. Informed consent signed for same. Plan OR for 9am tomorrow pending am labs - if am/lip down, will go. If not, would consider waiting until Sunday. Code(s): K80.71 - CALCULUS OF GB AND BILE DUCT W/O CHOLECYST W OBSTRUCTION (2) Morbid obesity with BMI of 40.0-44.9, adult Code(s): E66.01 - MORBID (SEVERE) OBESITY DUE TO EXCESS CALORIES; Z68.41 - BODY MASS INDEX (BMI) 40.0-44.9, ADULT (3) Epigastric pain Code(s): R10.13 - EPIGASTRIC PAIN
[2017-07-18 11:28] LABS: CHLORIDE 107 mmol/L (98-107); POTASSIUM 4.1 mmol/L (3.5-5.1); SODIUM 140 mmol/L (136-145)
[2017-07-18 11:47] LABS: ALBUMIN 2.8 g/dl (3.4-5.0); ALK PHOS 278 U/L (45-117); ANION GAP 6 (8-16); BILIRUBIN,TOTAL 0.7 mg/dL (0.2-1.0); BLOOD UREA NITROGEN 6 mg/dL (7-18); CALCIUM 8.2 mg/dL (8.5-10.1); CO2 27 mmol/L (21-32); CREATININE 0.6 mg/dL (0.55-1.02); GLUCOSE,RANDOM 70 mg/dL (74-106); SGOT/AST 144 U/L (15-37); SGPT/ALT 288 U/L (12-78); TOT PROT 6.3 g/dl (6.4-8.2)
[2017-07-18] MEDS: LACTATED RINGERS SOLUTION 1,000 ML/1,000 ML INFUS.BAG IV SCH ×2 (12:47→20:40)
[2017-07-18 13:07] VITALS: BMI 42.2
--- NOTE | 2017-07-18 13:28 | PN ---
Progress Note, Physician History of Present Illness: patient doing well had ercp done stones removed from cbd plan for surgery tomorrow - Current Medication List Current Medications: Active Medications Acetaminophen (Tylenol -) 650 mg PO Q6H PRN PRN Reason: PAIN LEVEL 1-5 Piperacillin Sod/Tazobactam (Sod 3.375 gm/ Dextrose) 50 mls @ 100 mls/hr IVPB Q8H-IV VI PRN Reason: Protocol Last Admin: 07/18/17 10:25 Dose: 100 mls/hr Lactated Ringer's (Lactated Ringers Solution) 1,000 ml in 1,000 mls @ 150 mls/ hr IV ASDIR VI Famotidine/Sodium Chloride (Pepcid 20 Mg Premixed Ivpb -) 20 mg in 50 mls @ 100 mls/hr IVPB BID VI Last Admin: 07/18/17 10:25 Dose: 100 mls/hr Morphine Sulfate (Morphine Sulfate) 2 mg IVPUSH Q4H PRN PRN Reason: PAIN LEVEL 6-10 Ondansetron HCl (Zofran Injection) 4 mg IVPUSH Q4H PRN PRN Reason: NAUSEA AND/OR VOMITING - Objective Vital Signs: Vital Signs Temperature 98.1 F 07/18/17 09:45 Pulse Rate 76 07/18/17 09:45 Respiratory Rate 17 07/18/17 09:45 Blood Pressure 143/83 07/18/17 09:45 O2 Sat by Pulse Oximetry (%) 100 07/17/17 21:00 Constitutional: Yes: No Distress, Calm, Obese Cardiovascular: Yes: Regular Rate and Rhythm Respiratory: Yes: Regular, CTA Bilaterally Gastrointestinal: Yes: Normal Bowel Sounds, Soft Musculoskeletal: Yes: WNL Extremities: Yes: WNL Neurological: Yes: Alert, Oriented Psychiatric: Yes: Alert, Oriented Labs: CBC, BMP 07/18/17 06:00 07/18/17 06:00 INR, PTT INR 1.10 (0.82-1.09) 07/17/17 01:20 Assessment/Plan Problem List - Problems (1) Calculus of gallbladder and bile duct without cholecystitis with obstruction Code(s): K80.71 - CALCULUS OF GB AND BILE DUCT W/O CHOLECYST W OBSTRUCTION (2) Morbid obesity with BMI of 40.0-44.9, adult Code(s): E66.01 - MORBID (SEVERE) OBESITY DUE TO EXCESS CALORIES; Z68.41 - BODY MASS INDEX (BMI) 40.0-44.9, ADULT (3) Epigastric pain Code(s): R10.13 - EPIGASTRIC PAIN 4 cbd stone patients wbc now normal plan continue current mgmt rest as per the team await for surgery patient stable
[2017-07-19] MEDS ORDERED: DEXTROSE 5%-WATER - 50 ML IVPB ONE ×3 (01:42→18:35)
[2017-07-19] MEDS ORDERED: PIPERACILLIN/TAZOBACTAM 3.375 GM VIAL IVPB ONE ×4 (01:42→18:35)
[2017-07-19] MEDS: PIPERACILLIN/TAZOB 3.375 GM 3.375 GM in DEXTROSE 5%-WATER - 50 ML IVPB SCH ×3 (02:14→18:45)
[2017-07-19 08:00] LABS: BASO % 0.3 % (0-2.0); EOS % 1.7 % (0-4.5); HEMATOCRIT 30.4 % (32.4-45.2); LYMPH % 24.9 % (8-40); MCH 24.8 pg (25.7-33.7); MCHC 32.9 g/dl (32.0-36.0); MEAN CELL VOLUME 75.4 fl (80-96); MEAN PLT VOLUME 8.3 fl (7.5-11.1); MONO % 3.8 % (3.8-10.2); NEUT % 69.3 % (42.8-82.8); PLATELET COUNT 305 K/MM3 (134-434); RBC 4.03 M/mm3 (3.60-5.2); RDW 15.4 % (11.6-15.6); WHITE BLOOD COUNT 11.4 K/mm3 (4.0-10.0)
[2017-07-19] MEDS ORDERED: IBUPROFEN 800 MG/8 ML IJ IVPB PRN (08:39)
[2017-07-19 08:42] LABS: CHLORIDE 104 mmol/L (98-107); SODIUM 137 mmol/L (136-145)
[2017-07-19] MEDS ORDERED: LIDOCAINE HCL 2% (20ML MULTI-DOSE VIAL) NR ONE (08:42)
[2017-07-19] MEDS ORDERED: SEVOFLURANE 250 ML BTL ONE (08:42)
[2017-07-19 08:56] LABS: ALK PHOS 259 U/L (45-117); AMYLASE 241 U/L (25-115); ANION GAP 8 (8-16); BLOOD UREA NITROGEN 6 mg/dL (7-18); CALCIUM 8.2 mg/dL (8.5-10.1); CO2 25 mmol/L (21-32); CREATININE 0.7 mg/dL (0.55-1.02); GLUCOSE,RANDOM 67 mg/dL (74-106); LIPASE 1445 U/L (73-393); SGOT/AST 79 U/L (15-37); SGPT/ALT 217 U/L (12-78)
[2017-07-19 08:57] LABS: BILIRUBIN,TOTAL 0.6 mg/dL (0.2-1.0); TOT PROT 6.6 g/dl (6.4-8.2)
[2017-07-19] MEDS ORDERED: ROCURONIUM BROMIDE 50 MG/5 ML VIAL ONE ×2 (09:13→10:29)
[2017-07-19] MEDS ORDERED: MIDAZOLAM HCL 2 MG/2 ML SINGLE DOSE VIAL ONE (09:13)
[2017-07-19] MEDS ORDERED: PROPOFOL 20 ML ONE ×2 (09:13)
[2017-07-19] MEDS ORDERED: fentaNYL CITRATE 250 MCG/5 ML VIAL ONE (09:13)
[2017-07-19] MEDS ORDERED: BUPIVACAINE HCL/PF 0.5% (5MG/ML) 10 ML VIAL ONE (09:17)
[2017-07-19] MEDS: FAMOTIDINE 20 MG/50 ML IVPB 20 MG/50 ML MG IVPB SCH (09:47)
[2017-07-19] MEDS ORDERED: NEOSTIGMINE METHYLSULFATE 0.5 MG/ML - 10 ML MDV ONE (10:32)
[2017-07-19] MEDS ORDERED: GLYCOPYRROLATE 0.2 MG/1 ML VIAL ONE (10:32)
[2017-07-19] MEDS ORDERED: DEXAMETHASONE SOD PHOSPHATE 4 MG/1 ML VIAL ONE (10:32)
--- NOTE | 2017-07-19 11:40 | OP ---
Operative Note - Note: Operative Date: 07/19/17 Pre-Operative Diagnosis: cholelithiasis, choledocholithiasis s/p ERCP Operation: laparoscopic cholecystectomy Findings: intrahepatic gallbladder, minimally inflamed, multiple small stones palpable, critical view identified Post-Operative Diagnosis: Same as Pre-op Surgeon: Peter De La Fuente [employer] Worker: Jason Pina Anesthesiologist/GAS METER MECHANIC: Mariana Gray Anesthesia: General Specimens Removed: gallbladder to pathology Estimated Blood Loss (mls): 5 Fluid Volume Replaced (mls): 1,100 (crystalloid) Operative Report Dictated: Yes
[2017-07-19] MEDS ORDERED: oxyCODONE HCL 5 MG TABLET PO PRN ×2 (11:45→12:04)
[2017-07-19] MEDS ORDERED: morphine SULFATE 4 MG/ML VIAL IVPUSH PRN ×2 (11:48→12:04)
[2017-07-19] MEDS ORDERED: ONDANSETRON 4 MG/2 ML VIAL IVPUSH PRN (12:04)
--- NOTE | 2017-07-19 13:50 | OP ---
DATE OF OPERATION: 07/19/2017 PREOPERATIVE DIAGNOSIS: Cholelithiasis and choledocholithiasis, status post endoscopic retrograde cholangiopancreatography. POSTOPERATIVE DIAGNOSIS: Cholelithiasis and choledocholithiasis, status post endoscopic retrograde cholangiopancreatography. PROCEDURE PERFORMED: Laparoscopic cholecystectomy. SURGEON: Peter De La Fuente MD LAY OUT DRAFTER: Jason Pina MD ANESTHESIA: General endotracheal. ESTIMATED BLOOD LOSS: 5 mL. FLUIDS: 1100 mL of crystalloid. SPECIMEN: Gallbladder to Pathology. FINDINGS: Intrahepatic gallbladder, which was minimally inflamed. There were multiple small stones palpable. The critical view was identified. DISPOSITION: Stable and extubated to PACU. INDICATIONS FOR PROCEDURE: The patient is an obese 31-year-old female with a history of laparoscopic ovarian cyst removal and mild reflux disease, who initially presented to the emergency room with epigastric pain radiating to the back, associated with nausea but no vomiting. In the emergency room, she was afebrile with a white count of 11 and elevated liver function tests but normal lipase and bilirubin. Ultrasound showed multiple small stones in the gallbladder without signs of cholecystitis. An MRCP was then done, showing possible mild cholecystitis and choledocholithiasis with at least 1 stone visualized in the mid common bile duct. GI was consulted and took her urgently for ERCP. They were able to retrieve 2 stones from the common bile duct and performed a sphincterotomy. That day, her bilirubin had also bumped from 0.8 to 1.7 along with liver function tests remaining elevated. After the ERCP, her liver functions began declining but her lipase bumped to 2800, so cholecystectomy was postponed for a day. This morning, her lipase is 1100, the LFTs are still coming down, and she is feeling well with no further pain or nausea. Risks, benefits, and alternatives of laparoscopic, possible open, cholecystectomy were discussed with the patient, including but not limited to bleeding, infection, injury to adjacent structures, bile leak or ductal injury, intraabdominal abscess, hernia, need for further procedures, and alternatives inclusive of delayed or no surgery with attendant risks of recurrent choledocholithiasis, cholecystitis, pancreatitis, cholangitis, and the potential for sepsis or . The patient desires to proceed with the operation. Informed consent was signed and she is now brought to the OR for surgery. OPERATIVE TECHNIQUE: The patient was brought to the operating room and laid supine on the operating table. Sequential compression devices were applied to bilateral lower extremities, and her scheduled dose of 3.375 g of Zosyn was given in the OR immediately prior to the case at its appropriate time, as she had been on antibiotics from the time of admission. After induction and intubation by Anesthesia, the patient's abdomen was prepped and draped in sterile fashion. A small supraumbilical midline incision was made with a scalpel and carried into subcutaneous tissues with electrocautery, until the abdominal wall fascia was identified, scored and elevated with Toya clamps. The peritoneum was entered bluntly with a fingertip and there were no underlying adhesions appreciated. A stay suture of 0 Vicryl in [id number] fashion was then placed in the fascia for later closure, and a Keyshawn trocar introduced directly into the abdominal cavity and secured in place with the balloon. The abdomen was insufflated with carbon dioxide. The 5-mm laparoscope was inserted to inspect the abdominal cavity, and the patient was placed in reverse Trendelenburg position with the right side planed slightly upward. An additional 5-mm port was placed in the subxiphoid area under direct vision. Through this, a grasper was introduced to sweep the omentum inferiorly, revealing the gallbladder as being rather intrahepatic, not particularly distended. There were no significant overlying adhesions. Two additional 5-mm ports were placed in the right upper quadrant and right lateral abdomen, through which graspers were introduced, the 1st to grasp the fundus of the gallbladder and elevate it toward and over the liver edge superiorly, the 2nd to grasp the infundibulum of the gallbladder and retract it laterally. A [place] dissector was then used through the operative port to begin dissection of the base of the gallbladder through the peritoneal covering to identify the cystic duct and cystic artery. The cystic duct was first identified and noted to be widened. Small stones were palpable at the base of the gallbladder and appeared also to bulge into the very top aspect of the cystic duct. These were milked a little bit back toward the gallbladder itself. Once the cystic duct had been completely isolated from its surrounding tissues and was visualized in the critical view from both medial and lateral sides as the only structure directly entering the gallbladder, it was clipped, 2 proximally and 1 distally with locking Weck clips and divided with Endo scissors. Dissection continued in the medial aspect to identify the cystic artery, which was not immediately apparent. Some overlying peritoneal and interstitial tissues were with the [place] dissector, and at one point a structure that may have had a vessel in it was clipped, 1 proximally and 1 distally and divided with the scissors, which appeared then to be simply fatty tissue. The cystic artery was then identified posterior to this and carefully isolated. It was then clipped, 2 proximally and 1 distally, and divided with the Endo scissors. There was still a small amount of oozing of blood from just above the proximal clips. An additional clip was placed on the artery or the side branch that may have been bleeding, with resolution of the oozing. A suction mixing operator was used to continue to clear the field and suction fluid and blood from the area to assist with visualization. The hook cautery was also used to begin taking the gallbladder off the liver bed, by dividing the peritoneal covering up both medial and lateral sides to assist with visualization and ensuring that indeed the arterial structure had achieved hemostasis. The hook cautery was then used to continue taking the gallbladder off the liver bed. This was performed in an avascular plane and was accomplished, with the gallbladder ultimately being at the top of the liver. It was then placed in an EndoCatch bag and retrieved out of the umbilical port site with the camera in the subxiphoid port. Multiple small stones again were palpable in the gallbladder. It was passed off the table for a pathology specimen. The Keyshawn trocar and pneumoperitoneum were reestablished, the camera returned to the umbilical port, and the field reinspected for hemostasis. The suction mixing operator was used to make sure that all fluid and blood were suctioned from the operative field and lateral to the liver edge, then the 5-mm ports were all removed under direct vision. The Keyshawn trocar and camera were then also removed, and the abdomen exsufflated of carbon dioxide. The stay suture at the umbilicus was tied to close the fascia there. Hemostasis was achieved in the port sites where necessary with electrocautery. Skin was closed with 4-0 Vicryl subcuticular sutures including a running at the umbilicus. Benzoin and Steri-Strips were applied to all incisions and dressings of gauze and Tegaderm applied over these. Counts were correct at the end of the procedure. The patient was then awakened by Anesthesia, extubated, and moved back to a stretcher and brought to the recovery room in stable condition, having tolerated the procedure well. Dr. Pina was an essential assistant program manager during the procedure, with both grasping and manipulation of the gallbladder, retrieval of the gallbladder out of the abdominal cavity, and closure of the skin. Peter De La Fuente M.D. RISHI/[id number] MTDD
[2017-07-19] MEDS ORDERED: ACETAMINOPHEN 325 MG TABLET (FP) PO SCH (15:00)
--- NOTE | 2017-07-19 15:24 | PN ---
Progress Note, Physician History of Present Illness: stable no issues post op - Current Medication List Current Medications: Active Medications Acetaminophen (Tylenol -) 650 mg PO Q6H VI Famotidine/Sodium Chloride (Pepcid 20 Mg Premixed Ivpb -) 20 mg in 50 mls @ 100 mls/hr IVPB BID VI Piperacillin Sod/Tazobactam (Sod 3.375 gm/ Dextrose) 50 mls @ 100 mls/hr IVPB Q8H-IV VI PRN Reason: Protocol Ibuprofen (Motrin -) 600 mg PO Q6H VI Morphine Sulfate (Morphine Sulfate) 2 mg IVPUSH Q4H PRN PRN Reason: breakthrough pain only Stop: 07/20/17 06:00 Ondansetron HCl (Zofran Injection) 4 mg IVPUSH Q4H PRN PRN Reason: NAUSEA AND/OR VOMITING Oxycodone HCl (Roxicodone -) 5 mg PO Q4H PRN PRN Reason: PAIN LEVEL 7 - 10 Last Admin: 07/19/17 13:36 Dose: 5 mg - Objective Vital Signs: Vital Signs Temperature 98.2 F 07/19/17 13:46 Pulse Rate 68 07/19/17 13:46 Respiratory Rate 18 07/19/17 13:46 Blood Pressure 130/73 07/19/17 13:46 O2 Sat by Pulse Oximetry (%) 100 07/19/17 13:10 Constitutional: Yes: No Distress, Calm Cardiovascular: Yes: Regular Rate and Rhythm Respiratory: Yes: Regular, CTA Bilaterally Gastrointestinal: Yes: Soft Musculoskeletal: Yes: WNL Extremities: Yes: WNL Wound/Incision: Yes: Clean/Dry Neurological: Yes: Alert, Oriented Psychiatric: Yes: Alert, Oriented Labs: CBC, BMP 07/19/17 06:00 07/19/17 06:00 INR, PTT INR 1.10 (0.82-1.09) 07/17/17 01:20 Assessment/Plan Problem List - Problems (1) Calculus of gallbladder and bile duct without cholecystitis with obstruction Code(s): K80.71 - CALCULUS OF GB AND BILE DUCT W/O CHOLECYST W OBSTRUCTION (2) Morbid obesity with BMI of 40.0-44.9, adult Code(s): E66.01 - MORBID (SEVERE) OBESITY DUE TO EXCESS CALORIES; Z68.41 - BODY MASS INDEX (BMI) 40.0-44.9, ADULT (3) Epigastric pain Code(s): R10.13 - EPIGASTRIC PAIN 4 cbd stone patients wbc now normal plan continue abx monitor rest as per surgery patient doing well will d/w surgery
[2017-07-19] MEDS: ACETAMINOPHEN 325 MG TABLET (FP) PO SCH ×2 (16:02→22:25)
[2017-07-19] MEDS ORDERED: IBUPROFEN 600 MG TABLET (FP) PO SCH (18:00)
[2017-07-19] MEDS: IBUPROFEN 600 MG TABLET (FP) PO SCH (18:44)
[2017-07-19] MEDS ORDERED: FAMOTIDINE 20 MG/50 ML IVPB 20 MG/50 ML MG IVPB SCH (22:00)
[2017-07-20] MEDS ORDERED: DEXTROSE 5%-WATER - 50 ML IVPB ONE ×2 (00:01→09:29)
[2017-07-20] MEDS ORDERED: PIPERACILLIN/TAZOBACTAM 3.375 GM VIAL IVPB ONE ×2 (00:01→09:29)
[2017-07-20] MEDS: IBUPROFEN 600 MG TABLET (FP) PO SCH ×2 (00:13→06:04)
[2017-07-20] MEDS: PIPERACILLIN/TAZOB 3.375 GM 3.375 GM in DEXTROSE 5%-WATER - 50 ML IVPB SCH ×2 (01:02→09:48)
[2017-07-20] MEDS: ACETAMINOPHEN 325 MG TABLET (FP) PO SCH ×2 (03:17→09:46)
--- NOTE | 2017-07-20 10:34 | DS ---
Physical Examination Vital Signs: Vital Signs Temperature 98.2 F 07/20/17 06:00 Pulse Rate 61 07/20/17 06:00 Respiratory Rate 20 07/20/17 06:00 Blood Pressure 136/70 07/20/17 06:00 O2 Sat by Pulse Oximetry (%) 98 07/19/17 20:31 Findings/Remarks: Pt seen up and ambulating, examined in bed. Feeling well, tolerated diet, passing gas, no BM yet. Voiding ok. Pain managed well with alternating tylenol and ibuprofen. No narcotics needed. Last dose abx 2am. Gets ~1000 on IS with good effort. Constitutional: Yes: No Distress, Calm, Obese Eyes: Yes: Conjunctiva Clear, EOM Intact. No: Sclera Icterus HENT: Yes: Atraumatic, Normocephalic Neck: Yes: Supple, Trachea Midline Cardiovascular: Yes: Regular Rate and Rhythm Respiratory: Yes: Regular, CTA Bilaterally Gastrointestinal: Yes: Normal Bowel Sounds, Soft, Abdomen, Obese, Tenderness ( mild incisional only) ...Rectal Exam: Yes: Deferred Musculoskeletal: No: Joint Stiffness, Joint Swelling Extremities: No: Cool, Cyanosis Integumentary: Yes: Incision (x4 dressed). No: Jaundice, Rash Wound/Incision: Yes: Steri Strips (under dressings), Dressing Dry and Intact (x4 ). No: Dressing Removed Neurological: Yes: Alert, Oriented. No: Unsteady Gait Labs: no new labs Discharge Summary Reason For Visit: COMMON BILE DUCT CALCULUS, ABDOMINAL PAIN Current Active Problems Abnormal LFTs (liver function tests) (Acute) Calculus of gallbladder and bile duct without cholecystitis with obstruction ( Acute) Epigastric pain (Acute) Morbid obesity with BMI of 40.0-44.9, adult (Acute) Post-ERCP chemical pancreatitis Procedures: Principal: laparoscopic cholecystectomy Other Procedures: ERCP with stone extraction and sphincterotomy by GI, Dr. Miller [facility] Hospital Course: 31yo morbidly obese F with GERD and h/o laparoscopic ovarian cyst removal presented to ER with epigastric pain through to back associated with nausea but no vomiting. She was afebrile, initial wbc 11, and elevated LFTs but normal lipase and bilirubin. US showed multiple small gallstones and no signs of cholecystitis with cbd dilated to almost 6mm. MRCP showed stone in mid-CBD, and bili valarie to 1.7 from 0.8 with persistently elevated LFTs the next morning. GI water resource consultant, Dr. Miller, took her for ERCP with extraction of 2 stones and sphincterotomy. It took multiple attempts to cannulate bile duct vs pancreatic duct, and pt had some post-procedure chemical pancreatitis with elevation of lipase the next morning, but decrease in all LFTs. Lipase went down by half the next day, and she was taken for uneventful laparoscopic cholecystectomy. Postoperatively, she has done well, tolerating diet, ambulating, voiding, and pain is managed well with alternating tylenol and ibuprofen. She completed antibiotic course begun in ER within 24 hours of surgery (Cefoxitin, then Zosyn just prior to ERCP and since). She is discharged home to f/u with PMD Dr. Ashish Ramirez at [facility] in [place] within 2 weeks, surgery in 2 weeks, and ID Dr. Victorina Vaca if needed. Condition: Good - Instructions Diet, Activity, Other Instructions: Postoperative instructions: You had a laparoscopic cholecystectomy on 07/19/[address] Peter De La Fuente of [facility]. Activity: Resume your usual activities gradually, but no heavy exertion or lifting more than 10-15 pounds for 1 month. Remove dressings 48 hours after surgery; sticky tapes underneath will fall off by themselves. You may shower daily starting then, just pat the incision areas dry. No bath or swimming until skin incisions have healed. Eat lightly at first, but advance to your usual diet as tolerated. Pain: For pain, you may use and alternate Tylenol (acetaminophen) and/or ibuprofen every 6 hours each as needed; this means that you can take one OR the other at 3-hour intervals. Do not take more than 4000mg of acetaminophen in a day. Take medications as prescribed or indicated on the labeling. Follow-up: Call Dr. De La Fuente's office at [phone] to make your postop appointment (Sunday ~2 weeks after surgery). Clinic is held in the Diagnostic [facility] on the first floor of [facility]. Call the office if you have: * increasing pain not responsive to pain medication * fever of 101F or higher * vomiting * unusual or increasing bleeding or drainage from wounds * increasing redness or swelling at wound sites Also, see your primary medical doctor within 1-2 weeks. Referrals: Hector Miller MD [Staff Physician] - Severiano Vaca MD [Staff Physician] - Oneal Ramirez MD [Non Staff, Medical] - 2 Weeks Disposition: HOME - Home Medications Comprehensive Discharge Medication List: Ambulatory Orders Acetaminophen [Tylenol .Regular Strength -] 650 mg PO Q6H tablet 07/20/17 Ibuprofen [Motrin -] 600 mg PO Q6H tablet 07/20/17
[2017-07-20 11:45] VITALS: BP 124/71; PULSE 73; TEMP 98
--- NOTE | 2017-07-20 12:49 | PN ---
Progress Note (short form) - Note Progress Note: Anesthesiology Post-op 31 y.o. POD#1 s/p laparoscopic cholecystectomy under GA. Pt. is awake and alert, doing well, preparing to be discharged from hospital. She has no complaints. VSS. 31 y.o. woman s/p laparoscopic cholecystectomy with stable post-operative course. D/c to home as per primary team.
--- NOTE | 2017-07-20 16:03 | PATH ---
Surgical Pathology Report Patient Name: BRANDO KAUR Med. Rec. #: [id number] /Age/Gender: 1985 (Age: 31) / F Account: [id number] Location: [facility] MED/SURG Taken: 07/19/2017 Received: 07/19/2017 Reported: 07/20/2017 Physicians: Peter De La Fuente M.D. Specimen(s) Received GALLBLADDER Clinical History Cholelithiasis, choledocholithiasis, status post ERCP Final Diagnosis GALLBLADDER, LAPAROSCOPIC CHOLECYSTECTOMY: CHRONIC CHOLECYSTITIS WITH CHOLELITHIASIS. Electronically Signed Candace Rodriguez M.D. Gross Description Received in formalin, labeled "gallbladder," is a 6.5 x 2.5 x 1.7 cm. gallbladder with a 0.2 cm. in length portion of cystic duct attached. The outer surface is carter-pink and varies from smooth to shaggy. The lumen contains green, tenacious bile as well as abundant green, irregular choleliths averaging 0.6 cm in greatest dimension. The mucosa is carter and velvety. The wall of the gallbladder averages 0.1 cm. in thickness. [employer] sections are submitted in one cassette. /07/19/2017 saudi07/19/2017
== END 2017-07-20 13:18 | disposition home or self-care (01) | DRG 263 ==
LOC: JER 19:24 → JERBED 23:19 → J7W 07-17 01:27
PROVIDERS: ADMIT Surgery; ATTEND Surgery
PROC: 0FC98ZZ Extirpation of Matter from Common Bile Duct, Via Natural or Artificial Opening Endoscopic (ICD-10-PCS; 2017-07-17)
PROC: 0FT44ZZ Resection of Gallbladder, Percutaneous Endoscopic Approach (ICD-10-PCS; principal; 2017-07-19 09:00)
DX: K80.18 Calculus of gallbladder with other cholecystitis without obstruction (principal); K21.9 Gastro-esophageal reflux disease without esophagitis; N83.209 Unspecified ovarian cyst, unspecified side; J98.11 Atelectasis; E66.01 Morbid (severe) obesity due to excess calories; Z68.41 Body mass index [BMI] 40.0-44.9, adult; R10.13 Epigastric pain; K85.30 Drug induced acute pancreatitis without necrosis or infection; T50.995A Adverse effect of other drugs, medicaments and biological substances, initial encounter; R94.5 Abnormal results of liver function studies; K83.8 Other specified diseases of biliary tract
CPT/HCPCS: 36415; 74181-TC; 74330-TC; 76705-TC; 80053; 81003; 82150; 82550; 83690; 84484; 84703; 85025; 85610; 86140; 86850; 86900; 86901; 87040; 88304-TC; 93005; 93010; 94010; 94760; 99282-25; J7030